=== PATIENT | female | born 1960 | race Caucasian/White ===

== ENCOUNTER → 2016-07-08 | Outpatient (CLI) | payer BC ==
[~2016-07-08] MED LIST: ALTACE 10MG TAB10 MG PO; ASPIRIN 81M81 MG/TA2 PO; AVELOX 400MG T400 MG PO; CELLCEPT 5500 MG/TAB PO; CENA K20 MEQ/15 PO; DUO-KAPS1 CAP PO; EPA/GLA1 SGL PO; LASIX 20MG TABL20 MG PO; LIPITOR20 MG PO; MEDROL4 MG PO; NORVASC 10MG10 MG PO; PLAQUENIL 200M200 MG PO; PREDNISONE10 MG PO; RITE AID CALCI600 MG PO; VITAMIN D32000 I1 PO; ZOFRAN ODT4 MG PO; [UNRECOGNIZED DRUG - OTHER]
== END ==
LOC: MC.RAD 12:59
DX: Z12.31 Encounter for screening mammogram for malignant neoplasm of breast (principal); Z85.820 Personal history of malignant melanoma of skin

== ENCOUNTER → 2017-07-09 | Outpatient (CLI) | payer BC | LOC: MC.RAD 14:34 | DX: Z12.31 Encounter for screening mammogram for malignant neoplasm of breast (principal) ==

== ENCOUNTER → 2018-07-10 | Outpatient (CLI) | payer BC | LOC: MC.RAD 11:01 | DX: Z12.31 Encounter for screening mammogram for malignant neoplasm of breast (principal) ==

== ENCOUNTER → 2018-12-04 | Outpatient (CLI) | payer BC | LOC: COL.VAS 15:03 | DX: R20.0 Anesthesia of skin (principal) ==

== ENCOUNTER → 2020-10-03 | Outpatient (CLI) | payer BC | LOC: MC.RAD 15:58 | DX: Z12.31 Encounter for screening mammogram for malignant neoplasm of breast (principal) ==

== ENCOUNTER → 2021-10-04 | Outpatient (CLI) | payer BC | LOC: MC.RAD 16:00 | DX: Z12.31 Encounter for screening mammogram for malignant neoplasm of breast (principal) ==

== ENCOUNTER → 2023-11-13 | Outpatient (CLI) | payer BC | LOC: MC.RAD 13:55 | DX: Z12.31 Encounter for screening mammogram for malignant neoplasm of breast (principal) ==